=== PATIENT | female | born 1965 | race Caucasian/White ===

== ENCOUNTER 2017-07-10 18:42 | Emergency (ER) | payer BC ==
[2017-07-10] MEDS ORDERED: Albuterol/Ipratropium NEB.SOL* Albuterol 2.5 MG/Ipratropium 0.5 MG 3 ML INH ONE ×3 (19:04→20:58)
[2017-07-10] MEDS ORDERED: Albuterol/Ipratropium NEB.SOL* Albuterol 2.5 MG/Ipratropium 0.5 MG 3 ML ONE (19:05)
--- NOTE | 2017-07-10 19:36 | RAD ---
INDICATION: Cough. COMPARISON: Comparison is made with a prior chest x-ray study from June 29, 2015. TECHNIQUE: Dual-energy PA and lateral views of the chest were obtained. FINDINGS: The heart is within normal limits in size. Mediastinal and hilar contours appear within normal limits. The lungs are hyperinflated and clear. No pleural effusion is seen. IMPRESSION: FINDINGS SUGGESTIVE OF COPD, NO EVIDENCE FOR ACUTE FINDING.
[2017-07-10] MEDS ORDERED: methylPREDNISolone 125 MG* 2 ML VIAL IM ONE (20:31)
[2017-07-10] MEDS ORDERED: Clarithromycin TAB* 500 MG PO ONE (21:45)
[2017-07-10] MEDS ORDERED: Albuterol HFA INHALER* 8 gm MDI INH PRN (21:46)
[2017-07-10 21:49] VITALS: BP 161/85
--- NOTE | 2017-07-10 21:59 | ED ---
Jose Caldera Benjamin, scribed for Jack Tolliver MD on 07/10/17 at 1928 . Shortness of Breath - HPI Summary HPI Summary: 52yo female had chest congestion for 3 days and today started to have SOB. Pt took inhaler for her SOB, and states feeling better after. Pt is a smoker. - History of Current Complaint Chief Complaint: EDShortnessOfBreath Time Seen by Provider: 07/10/17 18:50 Hx Obtained From: Patient Onset/Duration: Lasting Days - 3 days, Still Present, Worse Since - 1 day Current Severity: Mild Dyspnea At: Rest Aggrevating Factors: Nothing Alleviating Factors: Bronchodilators Associated Signs & Symptoms: Negative - Allergy/Home Medications Allergies/Adverse Reactions: Allergies Allergy/AdvReac Type Severity Reaction Status Date / Time Iodine Allergy Rash Verified 03/02/16 10:06 PMH/Surg Hx/FS Hx/Imm Hx Cardiovascular History: Reports: Hx Hypertension - Cancer History Hx Chemotherapy: No Hx Radiation Therapy: No Infectious Disease History: Denies: History Other Infectious Disease, Traveled Outside the in Last 30 Days - Family History Known Family History: Positive: Hypertension, Respiratory Disease - Social History Occupation: Employed Full-time Lives: With Family Alcohol Use: Occasionally Substance Use Type: Reports: None Hx Tobacco Use: Yes Smoking Status (MU): Light Every Day Tobacco Smoker Type: Cigarettes Amount Used/How Often: 1/2 ppd Review of Systems Constitutional: Negative Eyes: Negative ENT: Negative Cardiovascular: Negative Positive: Shortness Of Breath, Cough, Other - chest congestion Gastrointestinal: Negative Genitourinary: Negative Musculoskeletal: Negative Skin: Negative Neurological: Negative Psychological: Normal All Other Systems Reviewed And Are Negative: Yes Physical Exam Triage Information Reviewed: Yes Vital Signs On Initial Exam: Initial Vitals Temp Pulse Resp BP Pulse Ox 96.7 F 107 22 142/95 98 07/10/17 18:45 07/10/17 18:45 07/10/17 18:45 07/10/17 18:45 07/10/17 18:45 Vital Signs Reviewed: Yes Appearance: Positive: Well-Appearing, No Pain Distress, Well-Nourished Skin: Positive: Warm, Skin Color Reflects Adequate Perfusion, Dry Head/Face: Positive: Normal Head/Face Inspection Eyes: Positive: Normal, EOMI ENT: Positive: Normal ENT inspection Neck: Positive: Supple, Nontender Respiratory/Lung Sounds: Positive: Clear to Auscultation, Breath Sounds Present Cardiovascular: Positive: RRR Abdomen Description: Positive: Nontender, Soft Bowel Sounds: Positive: Present Musculoskeletal: Positive: Strength/ROM Intact Neurological: Positive: Sensory/Motor Intact, Alert, Oriented to Person Place, Time Psychiatric: Positive: Affect/Mood Appropriate Diagnostics - Vital Signs Vital Signs Temp Pulse Resp BP Pulse Ox 07/10/17 18:45 96.7 F 107 22 142/95 98 - Laboratory Lab Statement: Any lab studies that have been ordered have been reviewed, and results considered in the medical decision making process. - Radiology CXR Xray Interpretation: No Acute Changes - IMPRESSION: FINDINGS SUGGESTIVE OF COPD , NO EVIDENCE FOR ACUTE FINDING. Radiology Interpretation Completed By: Radiologist Re-Evaluation - Re-Evaluation Second Eval Re-Evaluation Time: 20:27 Comment: Reviewed pts lab and imaging results with the pt. Also discussed course of treatment and disposition, as well as follow up plans. Course/Dx - Course Course Of Treatment: Reviewed pts medication and allergy lists. Blood pressure noted. Assessment/Plan: Ms. Teresa improved some with treatment here in the ED. She has bronchitis with an exacerbation of her COPD. She wants to try and I think it is reasonable to try going home although she may end up coming back. - Diagnoses Provider Diagnoses: Bronchitis, COPD exacerbation Discharge - Discharge Plan Condition: Stable Disposition: HOME Prescriptions: Albuterol 2.5MG/3ML (0.083%)* [Ventolin 2.5 MG/3 ML NEB.OLIVER*] 2.5 mg INH Q4H # 30 neb.oliver Clarithromycin TAB* [Biaxin TAB*] 500 mg PO BID #20 tab Methylprednisolone [Medrol Dosepak 4 MG*] 4 mg PO .SEE MAGDALENA INSTRUCTION #1 tab Patient Education Materials: Acute Bronchitis (ED), COPD (Chronic Obstructive Pulmonary Disease) (ED) Referrals: Anuja Flood MD [Primary Care Provider] - 1 Day The documentation as recorded by the Jose henderson Benjamin accurately reflects the service I personally performed and the decisions made by me, Jack Tolliver MD.
== END 2017-07-10 21:58 | disposition home or self-care (01) ==
LOC: ED 18:42
DX: J44.1 Chronic obstructive pulmonary disease with (acute) exacerbation (principal); J40 Bronchitis, not specified as acute or chronic; R06.02 Shortness of breath; R05 Cough; R09.89 Other specified symptoms and signs involving the circulatory and respiratory systems; F17.210 Nicotine dependence, cigarettes, uncomplicated
CPT/HCPCS: 71020; 94640; 96372; 99284; A9270-GY; J2930

== ENCOUNTER 2024-07-19 14:04 | Observation (INO) ==
[2024-07-19] MEDS: Albuterol/Ipratropium NEB.SOL (2.5/0.5 MG) 3 ML NEB.SOLN INH ONE ×2 (15:37→17:14)
[2024-07-19] MEDS: Lactated Ringers 1000 ml BAG 1,000 ML IV ONE (16:22)
[2024-07-19] MEDS: methylPREDNISolone SOD SUCC 125 mg 2 ML VIAL IV ONE (16:22)
[2024-07-19 16:24] LABS: ABS Basophils 0.1 10^3/uL (0.0-0.1); ABS Eosinophils 0.1 10^3/uL (0.0-0.5); ABS Lymphocytes 1.5 10^3/uL (1.0-4.8); ABS Neutrophils 9.1 10^3/uL (1.5-7.6); Eosinophil % 1.1 %; Hematocrit 46.5 % (35-45); Hemoglobin 16.1 g/dL (11.5-14.3); Lymphocyte % 12.4 %; Mean Corpuscular Hemoglobin 33.5 pg (27-33); Mean Corpuscular Hgb Conc 34.6 g/dL (31-36); Mean Corpuscular Volume 96.9 fL (80-97); Mean Platelet Volume 8.9 fL (7.5-11.2); Platelet Count 218 10^3/uL (150-450); Red Cell Distribution Width 12.7 % (12-17); White Blood Count 11.7 10^3/uL (3.8-11.8)
[2024-07-19 16:32] LABS: INR 0.97 (0.85-1.14)
[2024-07-19 17:07] LABS: Albumin 4.8 g/dL (3.2-5.2); Albumin/Globulin Ratio 2.1 (1-3); Calcium 9.7 mg/dL (8.6-10.3); Creatinine, Serum 0.76 mg/dL (0.51-0.95); Globulin 2.3 g/dL (2-4); Potassium 3.9 mmol/L (3.5-5.0); Total Bilirubin 0.8 mg/dL (0.2-1.0); Total Protein 7.1 g/dL (6.4-8.9); eGFR CKD-EPI 90.8 (>60)
[2024-07-19] MEDS: cefTRIAXone 1 gm/50 mL D5W 1 GM/50 ML BAG IV ONE (17:45)
[2024-07-19] MEDS ORDERED: Albuterol/Ipratropium NEB.SOL (2.5/0.5 MG) 3 ML NEB.SOLN ONE (18:00)
[2024-07-19] MEDS ORDERED: Ondansetron 4 mg VIAL 2 MG/ML 2 ml VIAL ONE (18:10)
[2024-07-19 18:23] LABS: High Sensitivity Troponin 1 Hr 4 pg/mL (<15)
[2024-07-19] MEDS: Iohexol 350 (CONTRAST) 500 ML MDV IV ONE (20:04)
[2024-07-20] MEDS: Albuterol/Ipratropium NEB.SOL (2.5/0.5 MG) 3 ML NEB.SOLN INH SCH (00:27)
[2024-07-20] MEDS ORDERED: Albuterol HFA INHALER 8 gm MDI INH PRN (07:35)
[2024-07-20] MEDS: Enoxaparin 40 MG/0.4 ML SYR SUBCUT SCH (08:19)
[2024-07-20 09:47] VITALS: BP 177/98
[2024-07-20] MEDS ORDERED: Albuterol/Ipratropium NEB.SOL (2.5/0.5 MG) 3 ML NEB.SOLN INH PRN (13:00)
== END 2024-07-20 11:45 | disposition home or self-care (01) ==
LOC: EDHOLD 14:04 → ED 14:04 → SUATTDRO 22:49 → MED 07-20 00:56
PROVIDERS: ADMIT Internal Medicine; ATTEND Internal Medicine